=== PATIENT | female | born 2000 | race Two or more races ===

== ENCOUNTER 2022-12-23 11:23 | Emergency (ER) | payer OTHER ==
[~2022-12-23] VITALS: Ht 172.7 cm; Wt 60.8 kg
== END 2022-12-23 13:03 | disposition home or self-care (01) ==
LOC: ER 11:23 → EMR PED 11:26 → ER 13:03
DX: S69.81XA Other specified injuries of right wrist, hand and finger(s), initial encounter (principal); X58.XXXA Exposure to other specified factors, initial encounter; Y93.89 Activity, other specified; Y92.239 Unspecified place in hospital as the place of occurrence of the external cause; Y99.9 Unspecified external cause status; Z88.0 Allergy status to penicillin

== ENCOUNTER 2023-03-02 08:13 | Outpatient (CLI) | payer OTHER | END 2023-03-02 08:18 | disposition home or self-care (01) | LOC: LAB 08:13 | DX: M20.42 Other hammer toe(s) (acquired), left foot (principal); R07.89 Other chest pain; E11.9 Type 2 diabetes mellitus without complications; D68.9 Coagulation defect, unspecified; N39.0 Urinary tract infection, site not specified ==

== ENCOUNTER 2023-03-07 09:29 | Outpatient (CLI) | payer OTHER | END 2023-03-07 09:34 | disposition home or self-care (01) | LOC: EKG 09:29 | DX: Z01.810 Encounter for preprocedural cardiovascular examination (principal) ==

== ENCOUNTER 2023-03-12 14:18 | Outpatient (CLI) | payer OTHER | END 2023-03-12 14:22 | disposition home or self-care (01) | LOC: LAB 14:18 | DX: Z20.828 Contact with and (suspected) exposure to other viral communicable diseases (principal) ==

== ENCOUNTER 2023-07-26 07:50 | Outpatient (CLI) | payer OTHER | END 2023-07-26 08:00 | disposition home or self-care (01) | LOC: PPH VACUNA 07:50 | PROVIDERS: ATTEND Emergency Medicine Pediatric Emergency Medicine | DX: Z23 Encounter for immunization (principal) | CPT/HCPCS: 90686; G0008 ==

== ENCOUNTER 2023-10-09 11:32 | Emergency (ER) | payer OTHER ==
[~2023-10-09] VITALS: Ht 172.7 cm; Wt 62.1 kg
[2023-10-09 16:55] LABS: HEMATOCRIT 38.7 % (36.0-45.00); HEMOGLOBIN 12.9 g/dL (12.0-15.00); MEAN CELL VOLUME 89.4 fL (80.00-100.00); MEAN CORPUSCULAR HEMOGLOBIN 29.8 pg (27.00-32.0); MEAN CORPUSCULAR HGB CONC 33.4 g/dl (32.0-36.0); PLATELET COUNT 234 K/uL (150-450); RED BLOOD COUNT 4.33 M/uL (4.00-6.00); RED CELL DISTRIBUTION WIDTH 13.4 % (11.5-14.5)
[2023-10-09 17:09] LABS: CALCIUM 9.1 mg/dL (8.5-10.1); CREATININE SERUM 0.72 mg/dL (0.55-1.02); GFR 99.52; POTASSIUM 3.9 mEq/L (3.5-5.1)
== END 2023-10-09 19:00 | disposition home or self-care (01) ==
LOC: ER 11:32
PROVIDERS: General Practice
DX: R05.8 Other specified cough (principal); Z88.0 Allergy status to penicillin; Z20.822 Contact with and (suspected) exposure to COVID-19

== ENCOUNTER 2023-10-24 12:17 | Outpatient (CLI) | payer OTHER ==
[2023-10-24 13:22] LABS: HEMATOCRIT 36.1 % (36.0-45.00); HEMOGLOBIN 12.1 g/dL (12.0-15.00); MEAN CELL VOLUME 88.3 fL (80.00-100.00); MEAN CORPUSCULAR HEMOGLOBIN 29.6 pg (27.00-32.0); MEAN CORPUSCULAR HGB CONC 33.5 g/dl (32.0-36.0); PLATELET COUNT 289 K/uL (150-450); RED BLOOD COUNT 4.08 M/uL (4.00-6.00); RED CELL DISTRIBUTION WIDTH 13.7 % (11.5-14.5)
== END 2023-10-24 12:18 | disposition home or self-care (01) ==
LOC: LAB 12:17
PROVIDERS: ATTEND Dermatology Procedural Dermatology
DX: L40.0 Psoriasis vulgaris (principal)

== ENCOUNTER 2024-01-28 10:19 | Emergency (ER) | payer OTHER ==
[~2024-01-28] VITALS: Ht 172.7 cm; Wt 63.5 kg
[2024-01-28] MEDS ORDERED: DEXAMETHASONE SODIUM PHOSPHATE 4 MG/ML VIAL IM ONE (12:00)
[2024-01-28 12:47] LABS: HEMATOCRIT 38.4 % (36.0-45.00); MEAN CELL VOLUME 89.1 fL (80.00-100.00); MEAN CORPUSCULAR HEMOGLOBIN 30.1 pg (27.00-32.0); MEAN CORPUSCULAR HGB CONC 33.7 g/dl (32.0-36.0); PLATELET COUNT 212 K/uL (150-450); RED BLOOD COUNT 4.31 M/uL (4.00-6.00); RED CELL DISTRIBUTION WIDTH 12.7 % (11.5-14.5)
[2024-01-28 13:10] LABS: CALCIUM 9.6 mg/dL (8.5-10.1); CREATININE SERUM 0.75 mg/dL (0.55-1.02); GFR 94.94; POTASSIUM 4.2 mEq/L (3.5-5.1)
[2024-01-28] MEDS ORDERED: ACETAMINOPHEN 500 MG GEL..CAP PO ONE (13:30)
[2024-01-28] MEDS ORDERED: OSEL75CA PO (13:35)
== END 2024-01-28 13:47 | disposition home or self-care (01) ==
LOC: ER 10:19
PROVIDERS: General Practice
DX: J10.1 Influenza due to other identified influenza virus with other respiratory manifestations (principal); Z20.822 Contact with and (suspected) exposure to COVID-19; Z88.0 Allergy status to penicillin

== ENCOUNTER 2024-01-31 13:36 | Emergency (ER) | payer OTHER ==
[~2024-01-31] VITALS: Ht 172.7 cm; Wt 63.5 kg
[~2024-01-31 13:36] MED LIST: OSEL75CA PO
[2024-01-31] MEDS ORDERED: 0.9 % SODIUM CHLORIDE 1,000 ML IV ONE (16:15)
[2024-01-31] MEDS ORDERED: LACTOBACILLUS ACIDOPHILUS 1 CAP CAP PO ONE (16:15)
[2024-01-31] MEDS ORDERED: FAMOTIDINE/PF 20 MG/2 ML VIAL IV ONE (16:15)
[2024-01-31] MEDS ORDERED: ONDANSETRON HCL 2 MG/ML VIAL IV ONE (16:15)
[2024-01-31 17:35] LABS: HEMATOCRIT 38.2 % (36.0-45.00); HEMOGLOBIN 12.8 g/dL (12.0-15.00); MEAN CELL VOLUME 87.4 fL (80.00-100.00); MEAN CORPUSCULAR HEMOGLOBIN 29.4 pg (27.00-32.0); MEAN CORPUSCULAR HGB CONC 33.6 g/dl (32.0-36.0); PLATELET COUNT 160 K/uL (150-450); RED BLOOD COUNT 4.37 M/uL (4.00-6.00); RED CELL DISTRIBUTION WIDTH 13.5 % (11.5-14.5)
[2024-01-31 17:51] LABS: CREATININE SERUM 0.63 mg/dL (0.55-1.02); GFR 116.1; POTASSIUM 3.7 mEq/L (3.5-5.1)
[2024-01-31 18:57] LABS: PH,URINE 6.5 (5.0-8.0); URINE APPEARANCE Clear; URINE BILIRRUBIN Negative (NEGATIVE); URINE BLOOD Trace; URINE COLOR Yellow; URINE GLUCOSE Negative (NEGATIVE); URINE LEUKOCYTE Negative; URINE NITRATE Negative; URINE PROTEIN Negative (NEGATIVE); URINE UROBILINOGEN 0.2 E.U./dl
[2024-01-31 19:01] LABS: URINE RBC 18.1 uL (0.0-20.8); URINE WBC 2.6 uL (0.0-23.2)
[2024-01-31] MEDS ORDERED: INTESTINEX680 M1 PO (20:02)
[2024-01-31] MEDS ORDERED: ONDANSETRON ODT4 MG SL (20:02)
[2024-01-31] MEDS ORDERED: PEPCID AC20 MG PO (20:02)
== END 2024-01-31 20:14 ==
LOC: ER 13:36
PROVIDERS: Nurse Practitioner Family
DX: J10.1 Influenza due to other identified influenza virus with other respiratory manifestations (principal); K29.70 Gastritis, unspecified, without bleeding; Z88.0 Allergy status to penicillin

== ENCOUNTER 2024-07-06 11:47 | Emergency (ER) | payer OTHER ==
[~2024-07-06] VITALS: Ht 172.7 cm; Wt 63.5 kg
[~2024-07-06 11:47] MED LIST changes: +INTESTINEX680 M1 PO; +ONDANSETRON ODT4 MG SL; +PEPCID AC20 MG PO
[2024-07-06] MEDS ORDERED: ELVITEG/COB/EMTRI/TENOFO DISOP 1 UDTAB TABLET PO STA (12:09)
[2024-07-06] MEDS ORDERED: ELVITEG/COB/EMTRI/TENOFO DISOP 1 UDTAB TABLET PO ONE (12:20)
== END 2024-07-06 12:29 | disposition home or self-care (01) ==
LOC: ER 11:47
DX: T75.89XA Other specified effects of external causes, initial encounter (principal); Y64.8 Contaminated medical or biological substance administered by other means; Y74.1 Therapeutic (nonsurgical) and rehabilitative general hospital and personal-use devices associated with adverse incidents; Y93.F9 Activity, other caregiving; Y92.238 Other place in hospital as the place of occurrence of the external cause

== ENCOUNTER 2024-07-08 08:40 | Emergency (ER) | payer OTHER ==
[~2024-07-08] VITALS: Ht 172.7 cm; Wt 63.5 kg
[2024-07-08] MEDS ORDERED: 0.9 % SODIUM CHLORIDE 1,000 ML IV STA (09:41)
[2024-07-08] MEDS ORDERED: FAMOtidine 10 MG/ML (4ML VIAL) IV STA (09:42)
[2024-07-08] MEDS ORDERED: ONDANSETRON HCL 2 MG/ML VIAL IV ONE (09:45)
[2024-07-08] MEDS ORDERED: ONDANSETRON HCL 2 MG/ML VIAL ONE (09:46)
[2024-07-08] MEDS ORDERED: FAMOTIDINE/PF 20 MG/2 ML VIAL ONE (09:46)
[2024-07-08 10:09] LABS: HEMATOCRIT 36.2 % (36.0-45.00); HEMOGLOBIN 12.4 g/dL (12.0-15.00); MEAN CELL VOLUME 87.8 fL (80.00-100.00); MEAN CORPUSCULAR HGB CONC 34.2 g/dl (32.0-36.0); PLATELET COUNT 226 K/uL (150-450); RED BLOOD COUNT 4.12 M/uL (4.00-6.00); RED CELL DISTRIBUTION WIDTH 13.2 % (11.5-14.5)
[2024-07-08 10:38] LABS: CALCIUM 9.2 mg/dL (8.5-10.1); CREATININE SERUM 0.77 mg/dL (0.55-1.02); GFR 92.1; POTASSIUM 4.14 mEq/L (3.5-5.1)
== END 2024-07-08 14:43 | disposition home or self-care (01) ==
LOC: ER 08:42
PROVIDERS: General Practice
DX: R11.10 Vomiting, unspecified (principal); Z88.0 Allergy status to penicillin

== ENCOUNTER 2024-09-03 02:00 | Outpatient (CLI) | payer OTHER | END 2024-09-03 02:15 | disposition home or self-care (01) | LOC: PPH VACUNA 02:00 | PROVIDERS: ATTEND Emergency Medicine Pediatric Emergency Medicine | DX: Z23 Encounter for immunization (principal) ==

== ENCOUNTER → 2024-11-24 07:56 | Outpatient (CLI) | payer OTHER ==
[2024-11-25 09:48] LABS: HEPATITIS B SURFACE ANTIBODY Reactive (.)
== END | disposition home or self-care (01) ==
LOC: LAB 07:56
PROVIDERS: ATTEND Emergency Medicine Pediatric Emergency Medicine
DX: B01.9 Varicella without complication (principal); Z11.59 Encounter for screening for other viral diseases

== ENCOUNTER → 2024-12-08 | Emergency (ER) | payer OTHER ==
[~2024-12-08] VITALS: Ht 172.7 cm; Wt 63.5 kg
== END | disposition left against medical advice (07) ==
LOC: ER 05:34
DX: Z53.21 Procedure and treatment not carried out due to patient leaving prior to being seen by health care provider (principal)